=== PATIENT | male | born 1965 | race Two or more races ===

== ENCOUNTER 2021-02-12 19:29 | Emergency (ER) | payer OTHER ==
[~2021-02-12] VITALS: Ht 177.8 cm; Wt 81.6 kg
[2021-02-12] MEDS ORDERED: LACTATED RINGER'S 1,000 ML IV ONE ×2 (20:00→21:00)
[2021-02-12] MEDS ORDERED: DICYCLOMINE HCL (10MG/ML) 2 ML AMPULE IM ONE (20:00)
[2021-02-12] MEDS ORDERED: ONDANSETRON HCL 4 MG/2 ML VIAL IV ONE (20:00)
[2021-02-12 20:09] LABS: Basophils # (auto) 0.1 10 ^3/uL (0-0.2); Basophils % (auto) 0.6 % (0.0-2.0); Eosinophils # (auto) 0 10 ^3/uL (0-0.8); Eosinophils % (auto) 0.1 % (0.0-7.0); Hematocrit 47.3 % (41.0-53.0); Hemoglobin 17.1 g/dL (13.5-17.5); Lymphocytes # (auto) 1.1 10 ^3/uL (0.4-5.4); Lymphocytes % (auto) 13.1 % (10.0-50.0); Mean Corpuscular Hemoglobin 31.1 pg (28.0-32.0); Mean Corpuscular Volume 85.9 fL (80.0-100.0); Monocytes # (auto) 0.3 10 ^3/uL (0-1.3); Monocytes % (auto) 3.9 % (0.0-12.0); Neutrophils # (auto) 6.9 10 ^3/uL (1.6-8.6); Neutrophils % (auto) 82.3 % (37.0-80.0); Nucleated Red Blood Cells % 0.1 %; Platelet Count (auto) 226 10^3/uL (140-450); Red Blood Cells 5.51 10^6/uL (4.5-5.90); White Blood Cell 8.3 10^3/uL (4.4-10.8)
[2021-02-12 20:28] LABS: Albumin 4.5 g/dL (3.4-5.0); Calcium 9.2 mg/dL (8.5-10.1); Magnesium 2.1 mg/dL (1.6-2.6); Potassium 3.2 mmol/L (3.5-5.1)
[2021-02-12 20:31] LABS: BUN/Creatinine Ratio 15.9
[2021-02-12 20:33] LABS: Urine Bacteria NONE SEEN /hpf (None Seen); Urine Blood Negative /uL (Negative); Urine Mucus FEW (None Seen); Urine Specific Gravity 1.025 (1.001-1.035); Urine WBC 1 /hpf (0 - 3)
[2021-02-12 20:43] LABS: Bilirubin, Total 2.3 mg/dL (0.2-1.0); Total Protein 7.9 g/dL (6.4-8.2)
[2021-02-12 21:04] LABS: Lactic Acid w/Reflex 3.7 mmol/L (0.4-2.0)
[2021-02-12] MEDS: POTASSIUM CHL 20MEQ/100ML 100 ML IV SCH ×2 (21:24→23:30)
[2021-02-12] MEDS ORDERED: METOCLOPRAMIDE HCL 5MG/ml INJ 2ml VIAL ONE (22:13)
[2021-02-12] MEDS ORDERED: METOCLOPRAMIDE HCL 5MG/ml INJ 2ml VIAL IV ONE (22:45)
[2021-02-13] MEDS ORDERED: IOHEXOL 300 MG/ML 100ML BOTTLE IJ ONE (00:20)
[2021-02-13] MEDS ORDERED: PROMETHAZINE HCL 25 MG/ML 1ML ONE (00:57)
[2021-02-13] MEDS ORDERED: PANTOPRAZOLE 40 MG/10 ML VIAL INJ IV ONE (01:00)
[2021-02-13] MEDS ORDERED: PROMETHAZINE HCL 25 MG/ML 1ML IV ONE (01:00)
[2021-02-13] MEDS ORDERED: FAMOTIDINE (10MG/ML) 2ML VL IV ONE (01:00)
[2021-02-13] MEDS ORDERED: SODIUM CHLORIDE 0.9% 1,000 ML IV ONE (01:30)
[2021-02-13 03:17] LABS: Lactic Acid w/Reflex 2.8 mmol/L (0.4-2.0)
[2021-02-13 07:19] VITALS: BP 139/100
== END 2021-02-13 07:21 | disposition home or self-care (01) ==
LOC: ER 19:29 → EDSEX 19:29 → ER 02-13 07:21
DX: R11.2 Nausea with vomiting, unspecified (principal); E86.0 Dehydration; E87.2 Acidosis; E11.9 Type 2 diabetes mellitus without complications; I10 Essential (primary) hypertension
CPT/HCPCS: 36415; 74177; 80053; 81001; 83605; 83690; 83735; 85025; 96361; 96372; 96374; 96375; 99285; C9113; J0500; J2405; J2550; J2765; J3480; J3490; J7120; Q9967

== ENCOUNTER 2021-02-19 09:07 | Emergency (ER) | payer OTHER ==
[~2021-02-19] VITALS: Ht 177.8 cm; Wt 78.0 kg
[2021-02-19] MEDS ORDERED: SODIUM CHLORIDE 0.9% 1,000 ML IV ONE ×3 (09:30→12:00)
[2021-02-19 10:15] LABS: Urine Bacteria NONE SEEN /hpf (None Seen); Urine Blood Negative /uL (Negative); Urine Mucus FEW (None Seen); Urine WBC 1 /hpf (0 - 3)
[2021-02-19 10:23] LABS: Hemoglobin 17.9 g/dL (13.5-17.5)
[2021-02-19 10:24] LABS: Basophils # (auto) 0 10 ^3/uL (0-0.2); Basophils % (auto) 0.4 % (0.0-2.0); Eosinophils # (auto) 0.1 10 ^3/uL (0-0.8); Eosinophils % (auto) 0.5 % (0.0-7.0); Hematocrit 50.6 % (41.0-53.0); Lymphocytes # (auto) 2.9 10 ^3/uL (0.4-5.4); Lymphocytes % (auto) 25.3 % (10.0-50.0); Mean Corpuscular Hemoglobin 30.1 pg (28.0-32.0); Mean Corpuscular Hgb Conc. 35.4 g/dL (32.0-36.0); Mean Corpuscular Volume 85.1 fL (80.0-100.0); Monocytes % (auto) 8.6 % (0.0-12.0); Neutrophils # (auto) 7.5 10 ^3/uL (1.6-8.6); Neutrophils % (auto) 65.2 % (37.0-80.0); Nucleated Red Blood Cells % 0.3 %; Red Blood Cells 5.94 10^6/uL (4.5-5.90); Red Cell Distribution Width 12.9 % (11.8-14.3); White Blood Cell 11.5 10^3/uL (4.4-10.8)
[2021-02-19 10:32] LABS: Alanine Aminotransferase 68 U/L (16-61); Albumin 4.2 g/dL (3.4-5.0); Anion Gap 14 (5-15); Blood Urea Nitrogen 27 mg/dL (7-18); Carbon Dioxide 19 mmol/L (21-32); Chloride 102 mmol/L (98-107); Glucose 160 mg/dL (74-106); Lipase 374 U/L (73-393); Sodium 135 mmol/L (136-145)
[2021-02-19 10:38] LABS: Alkaline Phosphatase 76 U/L (45-117); Aspartate Aminotransferase 32 U/L (15-37); BUN/Creatinine Ratio 24.1; Bilirubin, Total 4.1 mg/dL (0.2-1.0); GFR African American 88 mL/min; GFR Non-African American 72 mL/min; Total Protein 7.4 g/dL (6.4-8.2)
[2021-02-19] MEDS ORDERED: PROMETHAZINE HCL 25 MG/ML 1ML IV ONE ×3 (11:45→15:00)
[2021-02-19 15:25] VITALS: BP 145/99
== END 2021-02-19 15:35 | disposition home or self-care (01) ==
LOC: ER 09:07
DX: R10.9 Unspecified abdominal pain (principal); E11.65 Type 2 diabetes mellitus with hyperglycemia; I10 Essential (primary) hypertension
CPT/HCPCS: 36415; 74176; 80053; 81001; 82010; 83690; 84484; 85025; 93005; 96361; 96374; 96376; 99285; J2550; J7030

== ENCOUNTER 2024-07-28 17:54 | Emergency (ER) | payer OTHER ==
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
[2024-07-28] MEDS: SODIUM CHLORIDE 0.9% 1,000 ML IV ONE (20:10)
[2024-07-28] MEDS: MORPHINE SULFATE 4 MG/ML SYR/VIAL IV ONE (20:11)
[2024-07-28] MEDS: ONDANSETRON HCL 4 MG/2 ML VIAL IV ONE (20:12)
[2024-07-28 20:13] VITALS: TEMP 99.2
[2024-07-28 20:19] VITALS: PULSE 103; RESP 16; O2SAT 96
[2024-07-28 21:17] VITALS: BP 135/75; PULSE 85; RESP 16
== END 2024-07-28 21:40 | disposition home or self-care (01) ==
LOC: EDBD 17:54 → ER 17:54
DX: S43.101A Unspecified dislocation of right acromioclavicular joint, initial encounter (principal); I10 Essential (primary) hypertension; E11.9 Type 2 diabetes mellitus without complications; Z88.6 Allergy status to analgesic agent; V29.888A Rider (driver) (passenger) of other motorcycle injured in other specified transport accidents, initial encounter; Y93.I9 Activity, other involving external motion; Y92.488 Other paved roadways as the place of occurrence of the external cause; Y99.8 Other external cause status
CPT/HCPCS: 71045; 73020; 96361; 96374; 96375; 99284; J2270; J2405; J7030